=== PATIENT | female | born 1955 ===

== ENCOUNTER 2016-11-08 06:36 | Day surgery (SDC) | payer MEDICARE, OTHER ==
[2016-11-08 06:54] VITALS: BMI 28.3
[2016-11-08 08:24] VITALS: TEMP 97.1
[2016-11-08 08:38] VITALS: O2SAT 100
[2016-11-08 09:30] VITALS: BP 115/71; PULSE 56; RESP 18
== END 2016-11-08 09:25 | disposition home or self-care (01) ==
LOC: C.ENDO 06:36
PROVIDERS: ATTEND Specialist
DX: K29.70 Gastritis, unspecified, without bleeding (principal); K30 Functional dyspepsia
CPT/HCPCS: 43239; 82948; 88305; 88342; J2704; J7120

== ENCOUNTER 2016-11-15 05:59 | Day surgery (SDC) | payer MEDICARE, OTHER ==
[2016-11-15 06:32] VITALS: BMI 27.6
[2016-11-15] MEDS ORDERED: Propofol 10 mg/ml Inj (20 ML) ONE ×2 (07:51→08:06)
[2016-11-15] MEDS ORDERED: Lidocaine Hydrochloride 5 ML INJ ONE (07:51)
--- NOTE | 2016-11-15 07:55 | CP.SDSHP ---
Same Day Surgery H & P - History Proposed Procedure: COLONSCOPY Pre-Op Diagnosis: SEE NOTES - Previous Medical/Surgical History Cardiac: Hypertension, ASHD/CAD Endocrine/Metabolic: Thyroid Disease, Diabetes, Other Neuro: Other Misc: Other - Allergies Allergies: Allergies No Known Allergies Allergy (Verified 04/19/15 20:25) - Physical Exam General Appearance: N Vital Signs: Vital Signs 11/15/16 06:40 Temperature 97.5 F L Pulse Rate 61 Respiratory 19 Rate Blood Pressure 116/76 O2 Sat by Pulse 98 Oximetry Mental Status: Alert & Oriented x3 Neuro: Other Heart: Other Lungs: WNL GI: WNL - {Optional Preform as Required} Breast: WNL Abdomen: Other Rectal: Other Integument: WNL : WNL Ortho: Other ENT: WNL - Impression Pt. Evaluated Today:Candidate for Anesthesia & Procedure: Yes - Date & Time Time: 07:55 Short Stay Discharge - Short Stay Discharge Admitting Diagnosis/Reason for Visit: RECTAL BLEEDING Disposition: HOME/ ROUTINE
[2016-11-15 08:38] VITALS: TEMP 97.6
[2016-11-15] MEDS ORDERED: Belladonna-Phenobarbital PO ONE (08:50)
[2016-11-15 09:05] VITALS: O2SAT 100
[2016-11-15 11:39] VITALS: BP 112/62; PULSE 66; RESP 12
== END 2016-11-15 09:55 | disposition home or self-care (01) ==
LOC: C.ENDO 05:59
PROVIDERS: ATTEND Specialist
DX: K58.9 Irritable bowel syndrome, unspecified (principal); K64.8 Other hemorrhoids
CPT/HCPCS: 45378; 82948; 88305; J2704

== ENCOUNTER 2017-02-21 06:09 | Day surgery (SDC) | payer MEDICARE, OTHER ==
[2017-02-21 06:40] VITALS: BMI 28.3
[2017-02-21] MEDS ORDERED: Propofol 10 mg/ml Inj (20 ML) ONE (07:51)
--- NOTE | 2017-02-21 08:10 | CP.SDSHP ---
Same Day Surgery H & P - History Proposed Procedure: EGD Pre-Op Diagnosis: SEE NOTES - Previous Medical/Surgical History Cardiac: Hypertension Pulmonary: Asthma Endocrine/Metabolic: Thyroid Disease, Diabetes, Other Neuro: Backaches, Other Pain: 4.Moderate Pain - Allergies Allergies: Allergies No Known Allergies Allergy (Verified 04/19/15 20:25) - Physical Exam General Appearance: N Vital Signs: Vital Signs 02/21/17 06:40 Temperature 97.7 F Pulse Rate 72 Respiratory 19 Rate Blood Pressure 122/80 O2 Sat by Pulse 99 Oximetry Mental Status: Alert & Oriented x3 Neuro: Other Heart: Other Lungs: Other GI: WNL - {Optional Preform as Required} Breast: WNL Abdomen: Other Rectal: Other Integument: WNL : WNL Ortho: Other ENT: WNL - Impression Pt. Evaluated Today:Candidate for Anesthesia & Procedure: Yes - Date & Time Time: 08:10 Short Stay Discharge - Short Stay Discharge Admitting Diagnosis/Reason for Visit: DYSPEPSIA Disposition: HOME/ ROUTINE
[2017-02-21] MEDS ORDERED: Belladonna-Phenobarbital PO ONE (08:30)
[2017-02-21 08:31] VITALS: TEMP 97.5
[2017-02-21 08:43] VITALS: O2SAT 100
[2017-02-21 09:08] VITALS: RESP 18
[2017-02-21 09:09] VITALS: BP 121/63; PULSE 62
== END 2017-02-21 09:30 | disposition home or self-care (01) ==
LOC: C.ENDO 06:09
PROVIDERS: ATTEND Specialist
DX: K30 Functional dyspepsia (principal); K44.9 Diaphragmatic hernia without obstruction or gangrene
CPT/HCPCS: 43239; 82948; 88305; J2704

== ENCOUNTER 2017-07-18 06:59 | Inpatient (IN) | payer MEDICARE, OTHER ==
[2017-07-18 07:11] VITALS: BMI 27.8
[2017-07-18] MEDS ORDERED: DiphenhydrAMINE 50 mg/ml Inj IVP STA (07:49)
--- NOTE | 2017-07-18 07:51 | C.PDOC ---
History Of Present Illness 62 y/o female with dm, htn and thyroid problems c/o intermittent sharp chest pain that woke her this morning, radiates to back, feels sob when pain present, lasts a few seconds a t a time. pt reports neg treadmill stress test last year. pt also c/o diffuse itchy urticarial rash since Sun, taking benadryl po without improvement. Time Seen by Provider: 07/18/17 07:26 Chief Complaint (Nursing): Chest Pain History Per: Patient History/Exam Limitations: no limitations Onset/Duration Of Symptoms: Hrs Current Symptoms Are (Timing): Still Present Quality: "Pain" Past Medical History Reviewed: Historical Data, Nursing Documentation, Vital Signs Vital Signs: Last Vital Signs Temp 98.2 F 07/18/17 07:06 Pulse 70 07/18/17 10:34 Resp 14 07/18/17 10:34 BP 125/80 07/18/17 10:34 Pulse Ox 100 07/18/17 11:19 - Medical History PMH: Arthritis, Asthma, Bronchitis, CVA (Stroke), HTN, Hypercholesterolemia, Hypothyroidism, Osteoporosis, TIA (2012 NO RESIDUAL WEAKNESS) Surgical History: Endoscopy - [facility] Procedures CLOSED ENDOSCOPIC BIOPSY OF LARGE INTESTINE (01/24/13) ESOPHAGOGASTRODUODENOSCOPY [EGD] W/CLOSED BIOPSY (06/13/13) NAIL REMOVAL (09/27/12) Family History: States: No Known Family Hx - Social History Hx Tobacco Use: No Hx Alcohol Use: No Hx Substance Use: No - Immunization History Hx Tetanus Toxoid Vaccination: No Hx Influenza Vaccination: Yes Hx Pneumococcal Vaccination: No Review Of Systems Constitutional: Negative for: Fever, Chills Cardiovascular: Positive for: Chest Pain Respiratory: Positive for: Shortness of Breath Gastrointestinal: Negative for: Nausea, Vomiting Skin: Positive for: Rash Physical Exam - Physical Exam Appears: Non-toxic, No Acute Distress Skin: Warm, Dry, Rash (Scattered urticaria to abdomen and b/l legs) Head: Atraumatic, Normacephalic Eye(s): bilateral: Normal Inspection Oral Mucosa: Moist Throat: Normal, No Erythema, No Exudate Neck: Normal ROM, Supple Cardiovascular: Rhythm Regular Respiratory: Normal Breath Sounds, No Rales, No Rhonchi, No Wheezing Gastrointestinal/Abdominal: Soft, No Tenderness, No Guarding, No Rebound Extremity: No Pedal Edema, Capillary Refill (<2 seconds) Neurological/Psych: Oriented x3, Normal Speech, Normal Cognition ED Course And Treatment - Laboratory Results Result Diagrams: 07/18/17 08:14 07/18/17 08:14 ECG: Viewed By Me Interpretation Of ECG: nsr lbbb rate 75 O2 Sat by Pulse Oximetry: 100 (RA) Pulse Ox Interpretation: Normal Medical Decision Making Medical Decision Making: pt with one episode of cp while in ed, not at the moment. pt reports dec itching and less erythema to hives after benadryl. Disposition Discussed With Dr.: Aron Scott Doctor Will See Patient In The: Hospital - Disposition Disposition: HOSPITALIZED Disposition Time: 11:40 Condition: GOOD Forms: [facility] (Micronesian) - Clinical Impression Clinical Impression: Chest pain - PA / HOME APPLIANCES MECH[employer]IC / Resident Statement MD/DO has reviewed & agrees with the documentation as recorded. - Scribe Statement The provider has reviewed the documentation as recorded by the Adrianeibhannah Lopez All medical record entries made by the Scribe were at my direction and personally dictated by me. I have reviewed the chart and agree that the record accurately reflects my personal performance of the history, physical exam, medical decision making, and the department course for this patient. I have also personally directed, reviewed, and agree with the discharge instructions and disposition.
[2017-07-18 08:17] LABS: BASO % 0.2 % (0.0-2.0); EOS # 0.1 K/uL (0.0-0.7); EOS % 1.2 % (0.0-4.0); HEMOGLOBIN 13.3 g/dL (11.0-16.0); LYMPH # 1.2 K/uL (1.0-4.3); LYMPH % 17.7 % (20.0-40.0); MEAN CORPUSCULAR HEMOGLOBIN 30.4 pg (27.0-31.0); MEAN CORPUSCULAR HGB CONC 34.5 g/dL (33.0-37.0); MEAN PLATELET VOLUME 8.4 fL (7.2-11.7); MONO # 0.5 K/uL (0.0-0.8); NEUT # 5.2 K/uL (1.8-7.0); NEUT % 73.9 % (50.0-75.0); RBC 4.39 Mil/uL (3.80-5.20); RED CELL DISTRIBUTION WIDTH 12.8 % (11.5-14.5); WHITE BLOOD COUNT 7.1 K/uL (4.8-10.8)
[2017-07-18] MEDS ORDERED: DiphenhydrAMINE 50 mg/ml Inj ONE (08:31)
[2017-07-18 08:49] LABS: ALB/GLOB RATIO 1.2 (1.0-2.1); ALBUMIN 3.7 g/dL (3.5-5.0); ALT/SGPT 27 U/L (9-52); AST/SGOT 45 U/L (14-36); BLOOD UREA NITROGEN 12 mg/dL (7-17); CALCIUM 8.5 mg/dl (8.6-10.4); GFR AFRICAN-AMERICAN > 60; GFR NON-AFRICAN AMERICAN > 60
--- NOTE | 2017-07-18 10:15 | RAD ---
Chest x-ray single frontal view History: Chest pain. Comparison: 04/19/2015 Findings: Mild venous congestion. Right hilar prominence. Patchy increased markings at the left lung base. Heart size within normal limits. Calcific tendinopathy of the left proximal humerus. Impression: Mild venous congestion. Right hilar prominence. Patchy increased markings at the left lung base.
[2017-07-18 11:04] LABS: B-TYPE NATRIURETIC PEPTIDE 149 pg/mL (0-900)
[2017-07-18] MEDS ORDERED: Morphine 4 MG/ML VIAL IV PRN (13:37)
[2017-07-18] MEDS: MethylPREDNISolone 40 mg Vial IV SCH (17:03)
--- NOTE | 2017-07-18 17:06 | CP.PCM.HP ---
<Jenni Diamond - Last Filed: 07/18/17 17:02> History of Present Illness - History of Present Illness History of Present Illness: CC: chest pain and rash HPI: 62 year old female with past medical history of DM, HTN, Hyperthyroidism, and stroke presents to the hospital with chest pain and a rash. Patient states last night she was awoken at 4am by sharp mid-sternal chest pain. She states the pain lasted only a few moments and then dissipated. She stated the pain was a 6/10, radiated directly through her chest to her back and that it has never happened before. However, a few hours later the pain came back with same presentation but with lesser intensity than it was originally. This instance the pain also left swiftly. She denies any palliation or provocation to the pain. The patient also presents with a rash. Patient states the rash first appeared on her lips and right arm on 07/15/17. Her lips were swollen and the arm rash was red, dime to nickel sized, raised molina. The patient took Benadryl and the rash went away. However, on 07/17/17 the rash reappeared. It did not effect her lips this time but the rash now presented on her chest, abdomen, right arm, bilateral back, and upper thighs. She states the rash is extremely itchy and looks similar to how it appeared originally. She states this is the first time this has ever happened to her as well. Patient states she ate shrimp on Monday, but that is not new for her. She could not think of or name the introduction of anything new that could have caused the rash including no new creams, soaps, or laundry detergent. PMD: Dr. Nicole PMHx: DM, HTN, Hypothyroid, Stroke- 5 years ago requiring 1 week hospital stay with no lasting residual effects Allergies: denies Surgical History: endoscopy mar 2017, ankle surgery 15 years ago Hospitalizations: stress test a few years ago recommended by her new automobile detailer establishing care Family History: Mother of [place] at 79, Father of Prostate Cancer at unknown age, 4 siblings all alive and well, 4 children (3 boys, 1 girl) alive and well Social History: Patient denies tobacco, alcohol, recreational drug use past or present. She lives with her son in a house in [place]. Present on Admission - Present on Admission Any Indicators Present on Admission: No History of DVT/PE: No History of Uncontrolled Diabetes: No Urinary Catheter: No Decubitus Ulcer Present: No Review of Systems - Constitutional Constitutional: absent: Chills, Fever - EENT Eyes: absent: Blurred Vision, Diplopia, Pain - Cardiovascular Cardiovascular: Chest Pain. absent: Dyspnea, Edema, Leg Edema - Respiratory Respiratory: absent: Cough, Chest Congestion, Pain with Coughing - Gastrointestinal Gastrointestinal: absent: Abdominal Pain, Constipation, Diarrhea, Nausea, Vomiting - Genitourinary Genitourinary: absent: Change in Urinary Stream, Difficulty Urinating, Dysuria - Musculoskeletal Musculoskeletal: absent: Muscle Weakness, Myalgias, Numbness, Stiffness, Tingling - Integumentary Integumentary: Pruritus, Rash Additional comments: rash on chest, abdomen, b/l upper extremities, b/l upper thighs - Neurological Neurological: absent: Dizziness, Headaches, Tingling Past Patient History - Past Medical History & Family History Past Medical History?: Yes - Past Social History Smoking Status: Never Smoked - CARDIAC Hx Hypercholesterolemia: Yes Hx Hypertension: Yes - PULMONARY Hx Asthma: Yes Hx Bronchitis: Yes - NEUROLOGICAL Hx Transient Ischemic Attacks (TIA): Yes (2011 NO RESIDUAL WEAKNESS) - HEENT Hx HEENT Problems: No - RENAL Hx Chronic Kidney Disease: No - ENDOCRINE/METABOLIC Hx Hypothyroidism: Yes - HEMATOLOGICAL/ONCOLOGICAL Hx Blood Disorders: No - INTEGUMENTARY Hx Dermatological Problems: No - MUSCULOSKELETAL/RHEUMATOLOGICAL Hx Arthritis: Yes Hx Osteoporosis: Yes - GASTROINTESTINAL Hx Gastrointestinal Disorders: Yes Hx Gastroesophageal Reflux: Yes - GENITOURINARY/GYNECOLOGICAL Hx Genitourinary Disorders: No - PSYCHIATRIC Hx Substance Use: No - SURGICAL HISTORY Hx Surgeries: Yes Other/Comment: 1 OVARY REMOVED,. HX OF LEFT ANKLE TENDON SURGERY - ANESTHESIA Hx Anesthesia: Yes Hx Anesthesia Reactions: No Hx Malignant Hyperthermia: No Meds Allergies/Adverse Reactions: Allergies Allergy/AdvReac Type Severity Reaction Status Date / Time shrimp Allergy RASH Uncoded 07/19/17 07:37 Physical Exam - Constitutional Appears: Non-toxic, No Acute Distress - Head Exam Head Exam: ATRAUMATIC, NORMAL INSPECTION, NORMOCEPHALIC - Eye Exam Eye Exam: EOMI, Normal appearance Pupil Exam: NORMAL ACCOMODATION, PERRL - ENT Exam ENT Exam: Mucous Membranes Moist - Neck Exam Neck exam: Positive for: Normal Inspection. Negative for: Lymphadenopathy, Tenderness, Thyromegaly - Respiratory Exam Respiratory Exam: Clear to Auscultation Bilateral, NORMAL BREATHING PATTERN. absent: Rales, Rhonchi, Wheezes, Respiratory Distress, Stridor - Cardiovascular Exam Cardiovascular Exam: REGULAR RHYTHM, RRR, +S1, +S2 - GI/Abdominal Exam GI & Abdominal Exam: Normal Bowel Sounds, Soft. absent: Distended, Tenderness - Extremities Exam Extremities exam: Positive for: normal inspection. Negative for: pedal edema, tenderness - Back Exam Back exam: NORMAL INSPECTION - Neurological Exam Neurological exam: Alert, Oriented x3 - Psychiatric Exam Psychiatric exam: Normal Affect, Normal Mood - Skin Skin Exam: Rash, Urticaria, Warm Additional comments: erythematous urticaria on abdomen, chest, b/l arms, and b/l upper thighs Results - Vital Signs Recent Vital Signs: Last Vital Signs Temp 98.2 F 07/18/17 16:16 Pulse 69 07/18/17 16:37 Resp 18 07/18/17 16:16 BP 154/91 H 07/18/17 16:16 Pulse Ox 96 07/18/17 16:16 - Labs Result Diagrams: 07/18/17 08:14 07/18/17 08:14 Labs: Laboratory Results - last 24 hr 07/18/17 07/18/17 07/18/17 08:14 08:14 16:04 WBC 7.1 RBC 4.39 Hgb 13.3 Hct 38.6 MCV 88.0 MCH 30.4 MCHC 34.5 RDW 12.8 Plt Count 189 MPV 8.4 Neut % (Auto) 73.9 Lymph % (Auto) 17.7 L [place] % (Auto) 7.0 Eos % (Auto) 1.2 Baso % (Auto) 0.2 Neut # (Auto) 5.2 Lymph # (Auto) 1.2 [place] # (Auto) 0.5 Eos # (Auto) 0.1 Baso # (Auto) 0.0 D-Dimer, Quantitative 844 H Sodium 142 Potassium 3.6 Chloride 105 Carbon Dioxide 27 Anion Gap 14 BUN 12 Creatinine 0.8 Est GFR ( Amer) > 60 Est GFR (Non-Af Amer) > 60 POC Glucose (mg/dL) Random Glucose 81 Calcium 8.5 L Total Bilirubin 0.5 AST 45 H ALT 27 Alkaline Phosphatase 81 Troponin I < 0.0120 NT-Pro-B Natriuret Pep 149 Total Protein 6.8 Albumin 3.7 Globulin 3.1 Albumin/Globulin Ratio 1.2 07/18/17 16:29 WBC RBC Hgb Hct MCV MCH MCHC RDW Plt Count MPV Neut % (Auto) Lymph % (Auto) [place] % (Auto) Eos % (Auto) Baso % (Auto) Neut # (Auto) Lymph # (Auto) [place] # (Auto) Eos # (Auto) Baso # (Auto) D-Dimer, Quantitative Sodium Potassium Chloride Carbon Dioxide Anion Gap BUN Creatinine Est GFR ( Amer) Est GFR (Non-Af Amer) POC Glucose (mg/dL) 131 H Random Glucose Calcium Total Bilirubin AST ALT Alkaline Phosphatase Troponin I NT-Pro-B Natriuret Pep Total Protein Albumin Globulin Albumin/Globulin Ratio Assessment & Plan - Assessment and Plan (Free Text) Assessment: Chest Pain admit to telemetry first troponin (-) follow up MAXWELL x2 ASA 81mg po daily EKG: NSR at 75bpm with LBBB (seen on previous EKGs) f/u Echo Cardiology consulted, Dr. Vines, help appreciated Rash f/u IgE Benadryl 50mg po q8 prn Solumedrol 125mg iv given in ED Solumedrol 40mg iv q12h Elevated D Dimer D dimer: 844 f/u CTA Hx Stroke continue home medications: Plavix 75mg po daily Crestor 20mg po HS HTN f/u lipid panel continue home medications: Lopressor 12.5mg po BID Losartan 25mg po daily DMII f/u HgA1C accuchecks achs hypoglycemia protocol Neurontin 600mg po BID hold metformin insulin sliding scale -low Hypothyroidism f/u free T4, T3, TSH continue home med: Synthroid 50mcg po Prophylaxis GI: Protonix 40mg po daily Plavix, scds Discussed with Dr. Scott <Aron Scott - Last Filed: 07/19/17 09:18> Results - Vital Signs Recent Vital Signs: Last Vital Signs Temp 97.7 F 07/19/17 07:25 Pulse 67 07/19/17 07:25 Resp 18 07/19/17 07:25 BP 155/92 H 07/19/17 07:25 Pulse Ox 96 07/19/17 07:25 - Labs Result Diagrams: 07/19/17 07:25 07/19/17 07:25 Labs: Laboratory Results - last 24 hr 07/18/17 07/18/17 07/18/17 08:14 16:04 16:29 WBC RBC Hgb Hct MCV MCH MCHC RDW Plt Count MPV Neut % (Auto) Lymph % (Auto) [place] % (Auto) Eos % (Auto) Baso % (Auto) Neut # (Auto) Lymph # (Auto) [place] # (Auto) Eos # (Auto) Baso # (Auto) Neutrophils % (Manual) Lymphocytes % (Manual) Monocytes % (Manual) Platelet Estimate D-Dimer, Quantitative 844 H Sodium 142 Potassium 3.6 Chloride 105 Carbon Dioxide 27 Anion Gap 14 BUN 12 Creatinine 0.8 Est GFR ( Amer) > 60 Est GFR (Non-Af Amer) > 60 POC Glucose (mg/dL) 131 H Random Glucose 81 Hemoglobin A1c Calcium 8.5 L Phosphorus Magnesium Total Bilirubin 0.5 AST 45 H ALT 27 Alkaline Phosphatase 81 Total Creatine Kinase CK-MB (Mass) Troponin I < 0.0120 NT-Pro-B Natriuret Pep 149 Total Protein 6.8 Albumin 3.7 Globulin 3.1 Albumin/Globulin Ratio 1.2 Triglycerides Cholesterol LDL Cholesterol Direct HDL Cholesterol Free T4 Free T3 pg/mL TSH 3rd Generation 07/18/17 07/18/17 07/18/17 18:11 18:11 20:57 WBC RBC Hgb Hct MCV MCH MCHC RDW Plt Count MPV Neut % (Auto) Lymph % (Auto) [place] % (Auto) Eos % (Auto) Baso % (Auto) Neut # (Auto) Lymph # (Auto) [place] # (Auto) Eos # (Auto) Baso # (Auto) Neutrophils % (Manual) Lymphocytes % (Manual) Monocytes % (Manual) Platelet Estimate D-Dimer, Quantitative Sodium Potassium Chloride Carbon Dioxide Anion Gap BUN Creatinine Est GFR ( Amer) Est GFR (Non-Af Amer) POC Glucose (mg/dL) 157 H Random Glucose Hemoglobin A1c Calcium Phosphorus Magnesium Total Bilirubin AST ALT Alkaline Phosphatase Total Creatine Kinase 80 CK-MB (Mass) 0.47 Troponin I < 0.0120 NT-Pro-B Natriuret Pep Total Protein Albumin Globulin Albumin/Globulin Ratio Triglycerides Cholesterol LDL Cholesterol Direct HDL Cholesterol Free T4 1.19 Free T3 pg/mL TSH 3rd Generation 07/19/17 07/19/1718 00:35 06:23 07:25 WBC RBC Hgb Hct MCV MCH MCHC RDW Plt Count MPV Neut % (Auto) Lymph % (Auto) [place] % (Auto) Eos % (Auto) Baso % (Auto) Neut # (Auto) Lymph # (Auto) [place] # (Auto) Eos # (Auto) Baso # (Auto) Neutrophils % (Manual) Lymphocytes % (Manual) Monocytes % (Manual) Platelet Estimate D-Dimer, Quantitative Sodium 141 Potassium 3.9 Chloride 107 Carbon Dioxide 21 L Anion Gap 16 BUN 16 Creatinine 0.7 Est GFR ( Amer) > 60 Est GFR (Non-Af Amer) > 60 POC Glucose (mg/dL) 116 H Random Glucose 138 H Hemoglobin A1c Calcium 9.2 Phosphorus 2.6 Magnesium 2.0 Total Bilirubin 0.6 AST 30 ALT 29 Alkaline Phosphatase 83 Total Creatine Kinase 64 CK-MB (Mass) 0.55 Troponin I < 0.0120 NT-Pro-B Natriuret Pep Total Protein 7.4 Albumin 4.1 Globulin 3.3 Albumin/Globulin Ratio 1.2 Triglycerides 88 Cholesterol 249 H LDL Cholesterol Direct 177 H HDL Cholesterol 53 Free T4 Free T3 pg/mL 2.81 TSH 3rd Generation 0.61 07/19/17 07/19/17 07:25 07:25 WBC 12.3 H D RBC 4.64 Hgb 13.8 Hct 41.0 MCV 88.4 MCH 29.8 MCHC 33.7 RDW 12.8 Plt Count 220 MPV 8.5 Neut % (Auto) 90.7 H Lymph % (Auto) 8.0 L [place] % (Auto) 1.2 Eos % (Auto) 0.0 Baso % (Auto) 0.1 Neut # (Auto) 11.1 H Lymph # (Auto) 1.0 [place] # (Auto) 0.1 Eos # (Auto) 0.0 Baso # (Auto) 0.0 Neutrophils % (Manual) 92 H Lymphocytes % (Manual) 7 L Monocytes % (Manual) 1 Platelet Estimate Normal D-Dimer, Quantitative Sodium Potassium Chloride Carbon Dioxide Anion Gap BUN Creatinine Est GFR ( Amer) Est GFR (Non-Af Amer) POC Glucose (mg/dL) Random Glucose Hemoglobin A1c 5.6 Calcium Phosphorus Magnesium Total Bilirubin AST ALT Alkaline Phosphatase Total Creatine Kinase CK-MB (Mass) Troponin I NT-Pro-B Natriuret Pep Total Protein Albumin Globulin Albumin/Globulin Ratio Triglycerides Cholesterol LDL Cholesterol Direct HDL Cholesterol Free T4 Free T3 pg/mL TSH 3rd Generation Attending/Attestation - Attestation I have personally seen and examined this patient.: Yes I have fully participated in the care of the patient.: Yes I have reviewed all pertinent clinical information: Yes Notes (Text): 07/19/17 09:15 Medical attending: Patient was seen and examined by me. Agree with the above note by the resident in the ER The patient was seen and examined by me as well. Her family member was present in the room as well She was no longer having chest pain when I came and saw her. The patient has a LBBB on EKG and it appears she's had this before in the past There is also a hives/rash appearing on her stomach, as well as chest and back. She reports this occured over the weekend, went away and then returned along with the chest pain that she had - which then prompted her to go to ER We will check additional cardiac markers. After review of her medication list as well as LBBB on EKG we will also get a cardiology evaluation as well. thank you Aron Scott
[2017-07-18] MEDS ORDERED: Dextrose 50% SYRINGE Inj (50 ml) IV PRN (17:25)
[2017-07-18] MEDS ORDERED: Glucagon Recombinant 1 mg Inj IM PRN (17:25)
[2017-07-18] MEDS ORDERED: Iodixanol 320 MG/ML 100 ML BOTTLE IV ONE (18:11)
[2017-07-18 18:51] LABS: CK-MB 0.47 ng/mL (0.0-3.38)
[2017-07-18] MEDS: (Novolin R) Insulin Human Regular 100 units/ml vial SC SCH (21:06)
--- NOTE | 2017-07-18 23:26 | CP.PCM.CON ---
History of Present Illness - History of Present Illness History of Present Illness: Patient seen and evaluated Multiple risk factors and exertional chest pain Stress test in am Past Patient History - Past Medical History & Family History Past Medical History?: Yes - Past Social History Smoking Status: Never Smoked - CARDIAC Hx Hypercholesterolemia: Yes Hx Hypertension: Yes - PULMONARY Hx Asthma: Yes Hx Bronchitis: Yes - NEUROLOGICAL Hx Transient Ischemic Attacks (TIA): Yes (2011 NO RESIDUAL WEAKNESS) - HEENT Hx HEENT Problems: No - RENAL Hx Chronic Kidney Disease: No - ENDOCRINE/METABOLIC Hx Hypothyroidism: Yes - HEMATOLOGICAL/ONCOLOGICAL Hx Blood Disorders: No - INTEGUMENTARY Hx Dermatological Problems: No - MUSCULOSKELETAL/RHEUMATOLOGICAL Hx Arthritis: Yes Hx Osteoporosis: Yes - GASTROINTESTINAL Hx Gastrointestinal Disorders: Yes Hx Gastroesophageal Reflux: Yes - GENITOURINARY/GYNECOLOGICAL Hx Genitourinary Disorders: No - PSYCHIATRIC Hx Substance Use: No - SURGICAL HISTORY Hx Surgeries: Yes Other/Comment: 1 OVARY REMOVED,. HX OF LEFT ANKLE TENDON SURGERY - ANESTHESIA Hx Anesthesia: Yes Hx Anesthesia Reactions: No Hx Malignant Hyperthermia: No Meds Allergies/Adverse Reactions: Allergies Allergy/AdvReac Type Severity Reaction Status Date / Time No Known Allergies Allergy Verified 07/18/17 07:06 - Medications Medications: Current Medications Aspirin (Aspirin Chewable) 81 mg PO DAILY [facility] Clopidogrel Bisulfate (Plavix) 75 mg PO DAILY [facility] Dextrose (Dextrose 50% Inj) 0 ml IV STAT PRN; Protocol PRN Reason: Hypoglycemia Protocol Dextrose (Glutose 15) 0 gm PO ONCE PRN; Protocol PRN Reason: Hypoglycemia Protocol Diphenhydramine HCl (Benadryl) 50 mg PO Q8 PRN PRN Reason: Itching / Pruritus Gabapentin (Neurontin) 600 mg PO BID [facility] Last Admin: 07/18/17 17:03 Dose: 600 mg Glucagon (Glucagen Diagnostic Kit) 0 mg IM STAT PRN; Protocol PRN Reason: Hypoglycemia Protocol Dextrose (Dextrose 5% In Water 1000 Ml) 1,000 mls @ 0 mls/hr IV .Q0M PRN; Protocol; Per Protocol PRN Reason: Hypoglycemia Protocol Insulin Human Regular (Novolin R) 0 unit SC ACHS [facility] PRN Reason: Protocol Last Admin: 07/18/17 21:06 Dose: Not Given Levothyroxine Sodium (Synthroid) 50 mcg PO DAILY@0630 [facility] Losartan Potassium (Cozaar) 25 mg PO DAILY [facility] Methylprednisolone (Solu-Medrol) 40 mg IV Q12H [facility] Last Admin: 07/18/17 17:03 Dose: 40 mg Metoprolol Tartrate (Lopressor) 12.5 mg PO BID [facility] Last Admin: 07/18/17 17:03 Dose: 12.5 mg Morphine Sulfate (Morphine) 2 mg IV Q4 PRN PRN Reason: Pain, Mild (1-3) Pantoprazole Sodium (Protonix Ec Tab) 40 mg PO DAILY [facility] Rosuvastatin Calcium (Crestor) 20 mg PO HS [facility] Last Admin: 07/18/17 21:11 Dose: 20 mg Sumatriptan Succinate (Imitrex Tab) 100 mg PO DAILY PRN PRN Reason: pain Results - Vital Signs Recent Vital Signs: Last Vital Signs Temp 98.2 F 07/18/17 16:16 Pulse 69 07/18/17 20:34 Resp 18 07/18/17 16:16 BP 144/78 07/18/17 20:34 Pulse Ox 96 07/18/17 16:16 - Labs Result Diagrams: 07/18/17 08:14 07/18/17 08:14 Labs: Laboratory Results - last 24 hr 07/18/17 07/18/17 07/18/17 08:14 08:14 16:04 WBC 7.1 RBC 4.39 Hgb 13.3 Hct 38.6 MCV 88.0 MCH 30.4 MCHC 34.5 RDW 12.8 Plt Count 189 MPV 8.4 Neut % (Auto) 73.9 Lymph % (Auto) 17.7 L [place] % (Auto) 7.0 Eos % (Auto) 1.2 Baso % (Auto) 0.2 Neut # (Auto) 5.2 Lymph # (Auto) 1.2 [place] # (Auto) 0.5 Eos # (Auto) 0.1 Baso # (Auto) 0.0 D-Dimer, Quantitative 844 H Sodium 142 Potassium 3.6 Chloride 105 Carbon Dioxide 27 Anion Gap 14 BUN 12 Creatinine 0.8 Est GFR ( Amer) > 60 Est GFR (Non-Af Amer) > 60 POC Glucose (mg/dL) Random Glucose 81 Calcium 8.5 L Total Bilirubin 0.5 AST 45 H ALT 27 Alkaline Phosphatase 81 Total Creatine Kinase CK-MB (Mass) Troponin I < 0.0120 NT-Pro-B Natriuret Pep 149 Total Protein 6.8 Albumin 3.7 Globulin 3.1 Albumin/Globulin Ratio 1.2 Free T4 07/18/17 07/18/17 07/18/17 16:29 18:11 18:11 WBC RBC Hgb Hct MCV MCH MCHC RDW Plt Count MPV Neut % (Auto) Lymph % (Auto) [place] % (Auto) Eos % (Auto) Baso % (Auto) Neut # (Auto) Lymph # (Auto) [place] # (Auto) Eos # (Auto) Baso # (Auto) D-Dimer, Quantitative Sodium Potassium Chloride Carbon Dioxide Anion Gap BUN Creatinine Est GFR ( Amer) Est GFR (Non-Af Amer) POC Glucose (mg/dL) 131 H Random Glucose Calcium Total Bilirubin AST ALT Alkaline Phosphatase Total Creatine Kinase 80 CK-MB (Mass) 0.47 Troponin I < 0.0120 NT-Pro-B Natriuret Pep Total Protein Albumin Globulin Albumin/Globulin Ratio Free T4 1.19 07/18/17 20:57 WBC RBC Hgb Hct MCV MCH MCHC RDW Plt Count MPV Neut % (Auto) Lymph % (Auto) [place] % (Auto) Eos % (Auto) Baso % (Auto) Neut # (Auto) Lymph # (Auto) [place] # (Auto) Eos # (Auto) Baso # (Auto) D-Dimer, Quantitative Sodium Potassium Chloride Carbon Dioxide Anion Gap BUN Creatinine Est GFR ( Amer) Est GFR (Non-Af Amer) POC Glucose (mg/dL) 157 H Random Glucose Calcium Total Bilirubin AST ALT Alkaline Phosphatase Total Creatine Kinase CK-MB (Mass) Troponin I NT-Pro-B Natriuret Pep Total Protein Albumin Globulin Albumin/Globulin Ratio Free T4
[2017-07-19 01:42] LABS: CK-MB 0.55 ng/mL (0.0-3.38)
[2017-07-19] MEDS: MethylPREDNISolone 40 mg Vial IV SCH ×2 (04:06→16:29)
[2017-07-19] MEDS: Levothyroxine 50 MCG TAB PO SCH (06:07)
[2017-07-19 07:35] LABS: BASO % 0.1 % (0.0-2.0); HEMOGLOBIN 13.8 g/dL (11.0-16.0); MEAN CELL VOLUME 88.4 fL (81.0-99.0); MEAN CORPUSCULAR HEMOGLOBIN 29.8 pg (27.0-31.0); MEAN CORPUSCULAR HGB CONC 33.7 g/dL (33.0-37.0); MEAN PLATELET VOLUME 8.5 fL (7.2-11.7); MONO # 0.1 K/uL (0.0-0.8); MONO % 1.2 % (0.0-10.0); NEUT # 11.1 K/uL (1.8-7.0); NEUT % 90.7 % (50.0-75.0); PLATELET COUNT 220 K/uL (130-400); RBC 4.64 Mil/uL (3.80-5.20); RED CELL DISTRIBUTION WIDTH 12.8 % (11.5-14.5); WHITE BLOOD COUNT 12.3 K/uL (4.8-10.8)
[2017-07-19 07:53] LABS: ALB/GLOB RATIO 1.2 (1.0-2.1); ALBUMIN 4.1 g/dL (3.5-5.0); ALT/SGPT 29 U/L (9-52); AST/SGOT 30 U/L (14-36); BLOOD UREA NITROGEN 16 mg/dL (7-17); CALCIUM 9.2 mg/dl (8.6-10.4); GFR AFRICAN-AMERICAN > 60; GFR NON-AFRICAN AMERICAN > 60; HDL CHOLESTEROL 53 mg/dL (30-70)
[2017-07-19] MEDS ORDERED: Aminophylline 25 mg/ml Inj ONE (07:53)
[2017-07-19 08:03] LABS: LDL CHOLESTEROL 177 mg/dL (0-129)
--- NOTE | 2017-07-19 08:08 | CT ---
PROCEDURE: CT Chest with contrast (Pulmonary Angiogram) HISTORY: elevated D Dimer COMPARISON: None available. TECHNIQUE: Axial computed tomography images were obtained of the chest in the pulmonary arterial phase of enhancement. Coronal and sagittal reformatted images were created and reviewed. Intravenous contrast dose: 100 mL Visipaque 320 Radiation dose: Total exam DLP = 619.5 mGy-cm. This CT exam was performed using one or more of the following dose reduction techniques: Automated exposure control, adjustment of the mA and/or kV according to patient size, and/or use of iterative reconstruction technique. FINDINGS: PULMONARY ARTERIES: Unremarkable. No pulmonary embolism. AORTA: No acute findings. No thoracic aortic aneurysm. LUNGS: Bibasilar atelectasis/ scarring. No nodule, mass or pulmonary consolidation. PLEURAL SPACES: Unremarkable. No effusion or pneumothorax. HEART: Unremarkable. No cardiomegaly. No significant pericardial effusion. LYMPH NODES: No lymphadenopathy. BONES, CHEST WALL: Unremarkable. No fracture or destructive lesion OTHER FINDINGS: Small hiatal hernia. IMPRESSION: Unremarkable CT pulmonary angiogram. No pulmonary embolus.
[2017-07-19] MEDS: (Novolin R) Insulin Human Regular 100 units/ml vial SC SCH ×4 (08:17→21:19)
[2017-07-19 08:42] LABS: LYMPHOCYTE 7 % (20-40); MONOCYTE 1 % (0-10); NEUTROPHIL 92 % (50-75); PLATELET ESTIMATE NORMAL (NORMAL); TOTAL CELLS COUNTED 100
[2017-07-19] MEDS ORDERED: RANITIDINE HCL 300 MG PO SCH (10:00)
[2017-07-19] MEDS: Pantoprazole 40 mg EC Tab PO SCH (10:58)
--- NOTE | 2017-07-19 13:11 | CARD ---
APPROVED REPORT EXAM: Two-dimensional and M-mode echocardiogram with Doppler and color Doppler. Other Information Quality : GoodRhythm : INDICATION Chest Pain RISK FACTORS Hypertension Diabetes 2D DIMENSIONS IVSd0.8 (0.7-1.1cm)LVDd4.9 (3.9-5.9cm) PWd0.9 (0.7-1.1cm)LVDs3.1 (2.5-4.0cm) FS (%) 35.9 %LVEF (%)65.3 (>50%) M-Mode DIMENSIONS Left Atrium (MM)4.03 (2.5-4.0cm)Aortic Root2.85 (2.2-3.7cm) Aortic Cusp Exc.2.04 (1.5-2.0cm) Mitral Valve MV E Hrftswmr39.4cm/sMV A Gpwfqboe91.9cm/sE/A ratio0.7 TDI E/Lateral E'0.0E/Medial E'0.0 Tricuspid Valve TR Peak Uljybink967rx/sTR Peak Gr.22mmHg LEFT VENTRICLE The left ventricle is normal size. There is normal left ventricular wall thickness. The left ventricular function is normal. The left ventricular ejection fraction is within the normal range. There is normal LV segmental wall motion. Tissue Doppler imaging reveals moderate left ventricular diastolic dysfunction. Transmitral Doppler flow pattern is Grade I-abnormal relaxation pattern. No left ventricle thrombus noted on this study. There is no ventricular septal defect visualized. There is no left ventricular aneurysm. There is no mass noted in the left ventricle. RIGHT VENTRICLE The right ventricle is normal size. There is normal right ventricular wall thickness. The right ventricular systolic function is normal. ATRIA The left atrium is borderline dilated. The right atrium size is normal. The interatrial septum is intact with no evidence for an atrial septal defect. AORTIC VALVE The aortic valve is normal in structure. No aortic regurgitation is present. There is no aortic valvular stenosis. There is no aortic valvular vegetation. MITRAL VALVE The mitral valve is normal in structure. There is no mitral valve stenosis. There is no mitral valve regurgitation noted. TRICUSPID VALVE The tricuspid valve is normal in structure. There is no tricuspid valve regurgitation noted. PULMONIC VALVE The pulmonary valve is normal in structure. There is no pulmonic valvular regurgitation. GREAT VESSELS The aortic root is normal in size. The ascending aorta is normal in size. The pulmonary artery is normal. The IVC is normal in size and collapses >50% with inspiration. PERICARDIAL EFFUSION There is no pericardial effusion. <Conclusion> Tissue Doppler imaging reveals moderate left ventricular diastolic dysfunction. Transmitral Doppler flow pattern is Grade I-abnormal relaxation pattern. The left atrium is borderline dilated. LVEF IS 65%.
--- NOTE | 2017-07-19 13:26 | CARD ---
APPROVED REPORT EKG Measurement Heart [id number] <Conclusion> Normal sinus rhythm Left bundle branch block Abnormal ECG
--- NOTE | 2017-07-19 16:47 | CARD ---
APPROVED REPORT Protocol: LEXISCAN Test Type: LEXISCAN STRESS Test Indications: CHEST PAIN Target HR: 156 bpm Resting ECG: NSR W/ LBBB Resting Heart Rate: 79 bpm Resting Blood Pressure: 132/80mmHg submaximum (85%): 133 bpm TEST SUMMARY [id number]:050.00.01.071/.0. PREINFSNHYPERV.03:[id number]/80.0. INFUSIONDOSE 100:300.00.01.081/.0. WHPGCMAFL72:[id number]/80.0. PROCEDURE Pharmacologic stress testing was performed using 0.4mg per 5ml of regadenoson given intravenously over 7-10 seconds. Reversal agent aminophyline 100 mg, given intravenously for Headache. POST EXERCISE Reason for Termination: Protocol Completed Target HR: No Max HR: 81 bpm 67% of Maximum Predicted HR: 156 bpm Exercise duration: 00:30 min:sec, 0 Stage Exercise capacity: 1.0METs Max Blood Pressure: 132/80mmHg Blood Pressure response to exercise: normal resting BP - appropriate response Heart Rate response to exercise: appropriate Chest Pain: No, none Angina index: 0 Arrhythmia: No, none ST Change: No, none Deviation: 0 mm INTERPRETATION Stress EKG Conclusion: NON-DIAGNOSTIC LEXISCAN DUE TO PRE-EXISTING LBBB NORMAL BP RESPONSE TO LEXISCAN NUCLEAR STUDIES TO BE READ SEPARATELY EXAM: Myocardial Perfusion STRESS/REST Imaging Protocol The imaging protocol used to acquire images was Stress Tc-99m/rest Tc-99m 1 day Stress Spect myocardial perfusion imaging was performed in supine position 45 minutes following the injection of 13.1 mCi of Tc-99 Myoview. Gated Rest Spect was performed 55 minutes after intravenous 32.4 mci Tc-99 Myoview injection. The images were gated to evaluate regional wall motion and calculate ventricular ejection fraction.Images were reconstructed using backfilter projection method in short horizontal and verticle long axis. Spect slices were generated. RESTING DATA EDV85.96flCX7.10L/min ESV26.00mlMyocardial Llhl776.00g Av. Heart Rate70.00bpm EF69.00% STRESS DATA EDV88.80ttZL7.80L/min ESV22.00mlMyocardial Ehmy323.00g EF75.00% Regional WT score at stress:0.00 Regional WM score at stress:0.00 Summed WT score at stress:3.00 Av. Heart Rate72.00bpmSummed WM score at stress:0.00 LV Perf. Quant 17 Seg. SSS7.00 17 Seg. SRS5.00 17 Seg. SDS2.00 Stress Defect Extent (% LAD)13.10Rest Defect Extent (% LAD)5.00Rev. Defect Extent (% LAD)1.30 Stress Defect Extent (% LCX)37.50Rest Defect Extent (% LCX)30.00Rev. Defect Extent (% LCX)1.30 Stress Defect Extent (% RCA)0.00Rest Defect Extent (% RCA)0.00Rev. Defect Extent (% RCA)0.00 Stress Defect Extent (% SANTHOSH)11.30Rest Defect Extent (% SANTHOSH)7.60Rev. Defect Extent (% SANTHOSH)0.70 Other Information Quality:Good IMPRESSION Abnormal Myocardial Perfusion exercise stress study Left Ventricle LV Function:Left ventricle systolic function is normal. The Ejection Fraction is >55%. Conclusion 1. There is small area of apical reversible defect suggestive of stress unduced ischemia. 2. Abnormal stress test. Normal EF
--- NOTE | 2017-07-19 17:24 | CP.PCM.PN ---
Subjective - Date & Time of Evaluation Date of Evaluation: 07/19/17 Time of Evaluation: 07:00 - Subjective Subjective: PGY1- Medicine Note for Dr. Scott Patient seen and examined at bedside and in no acute distress. Patient denies any events overnight. Patient is feeling less itchy and says the rash is going away. Patient denies any chest pain or shortness of breath. Patient admits to a migraine headache which she usually gets a few times per month. Patient denies any vomiting, but does admit to some nausea. Patient also has some dizziness upon standing. Patient denies any abdominal pain, constipation, or diarrhea. Objective - Vital Signs/Intake and Output Vital Signs (last 24 hours): Temp Pulse Resp BP Pulse Ox 98.1 F 63 20 129/84 97 07/19/17 15:31 07/19/17 16:49 07/19/17 15:31 07/19/17 15:31 07/19/17 15:31 Intake and Output: 07/19/17 07/19/17 06:59 18:59 Intake Total 500 410 Balance 500 410 - Medications Medications: Current Medications Aspirin (Aspirin Chewable) 81 mg PO DAILY [facility] Last Admin: 07/19/17 10:57 Dose: 81 mg Clopidogrel Bisulfate (Plavix) 75 mg PO DAILY [facility] Last Admin: 07/19/17 10:58 Dose: 75 mg Dextrose (Dextrose 50% Inj) 0 ml IV STAT PRN; Protocol PRN Reason: Hypoglycemia Protocol Dextrose (Glutose 15) 0 gm PO ONCE PRN; Protocol PRN Reason: Hypoglycemia Protocol Diphenhydramine HCl (Benadryl) 50 mg PO Q8 PRN PRN Reason: Itching / Pruritus Gabapentin (Neurontin) 600 mg PO BID [facility] Last Admin: 07/19/17 10:58 Dose: 600 mg Glucagon (Glucagen Diagnostic Kit) 0 mg IM STAT PRN; Protocol PRN Reason: Hypoglycemia Protocol Heparin Sodium (Porcine) (Heparin) 5,000 units SC Q12 [facility] Last Admin: 07/19/17 10:58 Dose: 5,000 units Dextrose (Dextrose 5% In Water 1000 Ml) 1,000 mls @ 0 mls/hr IV .Q0M PRN; Protocol; Per Protocol PRN Reason: Hypoglycemia Protocol Insulin Human Regular (Novolin R) 0 unit SC ACHS [facility] PRN Reason: Protocol Last Admin: 07/19/17 16:23 Dose: Not Given Levothyroxine Sodium (Synthroid) 50 mcg PO DAILY@0630 [facility] Last Admin: 07/19/17 06:07 Dose: 50 mcg Losartan Potassium (Cozaar) 25 mg PO DAILY [facility] Last Admin: 07/19/17 10:58 Dose: 25 mg Methylprednisolone (Solu-Medrol) 40 mg IV Q12H [facility] Last Admin: 07/19/17 16:29 Dose: 40 mg Metoprolol Tartrate (Lopressor) 12.5 mg PO BID [facility] Last Admin: 07/19/17 10:58 Dose: 12.5 mg Morphine Sulfate (Morphine) 2 mg IV Q4 PRN PRN Reason: Pain, Mild (1-3) Pantoprazole Sodium (Protonix Ec Tab) 40 mg PO DAILY [facility] Last Admin: 07/19/17 10:58 Dose: 40 mg Rosuvastatin Calcium (Crestor) 20 mg PO HS [facility] Last Admin: 07/18/17 21:11 Dose: 20 mg Sumatriptan Succinate (Imitrex Tab) 100 mg PO DAILY PRN PRN Reason: pain Last Admin: 07/19/17 11:06 Dose: 100 mg - Labs Labs: 07/19/17 07:25 07/19/17 07:25 - Additional Findings Additional findings: - Constitutional Appears: Non-toxic, No Acute Distress - Head Exam Head Exam: ATRAUMATIC, NORMAL INSPECTION, NORMOCEPHALIC - Eye Exam Eye Exam: EOMI, Normal appearance Pupil Exam: NORMAL ACCOMODATION, PERRL - ENT Exam ENT Exam: Mucous Membranes Moist - Neck Exam Neck exam: Positive for: Normal Inspection. Negative for: Lymphadenopathy, Tenderness, Thyromegaly - Respiratory Exam Respiratory Exam: Clear to Auscultation Bilateral, NORMAL BREATHING PATTERN. absent: Rales, Rhonchi, Wheezes, Respiratory Distress, Stridor - Cardiovascular Exam Cardiovascular Exam: REGULAR RHYTHM, RRR, +S1, +S2 - GI/Abdominal Exam GI & Abdominal Exam: Normal Bowel Sounds, Soft. absent: Distended, Tenderness - Extremities Exam Extremities exam: Positive for: normal inspection. Negative for: pedal edema, tenderness - Back Exam Back exam: NORMAL INSPECTION - Neurological Exam Neurological exam: Alert, Oriented x3 - Psychiatric Exam Psychiatric exam: Normal Affect, Normal Mood - Skin Skin Exam: Rash, Urticaria, Warm Additional comments: decreasing erythematous urticaria on abdomen, chest, b/l arms, and b/l upper thighs Assessment and Plan - Assessment and Plan (Free Text) Assessment: Chest Pain admit to telemetry troponin (-) x 3 ASA 81mg po daily EKG: NSR at 75bpm with LBBB (seen on previous EKGs) Cardiology consulted, Dr. Vines, help appreciated Echo: moderate left ventricular diastolic dysfunction. transmitral doppler flow pattern is grade-I abnormal relaxation pattern. Left atrium is borderline dilated. LVEF is 65% Stress test: small area of apical reversible defect suggestive of stress induced ischemia. abnormal stress test. Normal EF. Patient to go for Cardiac Cath tomorrow at 11AM with Dr. Vines NPO after midnight Rash f/u IgE Benadryl 50mg po q8 prn Solumedrol 125mg iv given in ED Solumedrol 40mg iv q12h Elevated D Dimer D dimer: 844 CTA: negative for PE Hx Stroke continue home medications: Plavix 75mg po daily Crestor 20mg po HS HTN Triglycerides: 88 Cholesterol: 249 LDL: 177 HDL: 53 continue home medications: Lopressor 12.5mg po BID Losartan 25mg po daily DMII HgA1C: 5.6 accuchecks achs hypoglycemia protocol Neurontin 600mg po BID hold metformin insulin sliding scale -low Hypothyroidism Free T4: 1.19, TSH: .61 continue home med: Synthroid 50mcg po Prophylaxis GI: Protonix 40mg po daily Plavix, scds Discussed with Dr. Scott
--- NOTE | 2017-07-19 21:52 | CP.PCM.PN ---
Subjective - Date & Time of Evaluation Date of Evaluation: 07/19/17 Time of Evaluation: 17:25 - Subjective Subjective: Patient with multiple cardiac risk factors admitted for chest pain and now abnormal stress test For cath tomorrow in am Objective - Vital Signs/Intake and Output Vital Signs (last 24 hours): Temp Pulse Resp BP Pulse Ox 98.1 F 71 20 129/84 97 07/19/17 15:31 07/19/17 20:39 07/19/17 15:31 07/19/17 15:31 07/19/17 15:31 Intake and Output: 07/19/17 07/20/17 18:59 06:59 Intake Total 410 800 Balance 410 800 - Medications Medications: Current Medications Aspirin (Aspirin Chewable) 81 mg PO DAILY [facility] Last Admin: 07/19/17 10:57 Dose: 81 mg Clopidogrel Bisulfate (Plavix) 75 mg PO DAILY [facility] Last Admin: 07/19/17 10:58 Dose: 75 mg Dextrose (Dextrose 50% Inj) 0 ml IV STAT PRN; Protocol PRN Reason: Hypoglycemia Protocol Dextrose (Glutose 15) 0 gm PO ONCE PRN; Protocol PRN Reason: Hypoglycemia Protocol Diphenhydramine HCl (Benadryl) 50 mg PO Q8 PRN PRN Reason: Itching / Pruritus Gabapentin (Neurontin) 600 mg PO BID [facility] Last Admin: 07/19/17 17:25 Dose: 600 mg Glucagon (Glucagen Diagnostic Kit) 0 mg IM STAT PRN; Protocol PRN Reason: Hypoglycemia Protocol Heparin Sodium (Porcine) (Heparin) 5,000 units SC Q12 [facility] Last Admin: 07/19/17 21:16 Dose: 5,000 units Dextrose (Dextrose 5% In Water 1000 Ml) 1,000 mls @ 0 mls/hr IV .Q0M PRN; Protocol; Per Protocol PRN Reason: Hypoglycemia Protocol Insulin Human Regular (Novolin R) 0 unit SC ACHS [facility] PRN Reason: Protocol Last Admin: 07/19/17 21:19 Dose: Not Given Levothyroxine Sodium (Synthroid) 50 mcg PO DAILY@0630 [facility] Last Admin: 07/19/17 06:07 Dose: 50 mcg Losartan Potassium (Cozaar) 25 mg PO DAILY [facility] Last Admin: 07/19/17 10:58 Dose: 25 mg Methylprednisolone (Solu-Medrol) 40 mg IV Q12H [facility] Last Admin: 07/19/17 16:29 Dose: 40 mg Metoprolol Tartrate (Lopressor) 12.5 mg PO BID [facility] Last Admin: 07/19/17 17:25 Dose: 12.5 mg Morphine Sulfate (Morphine) 2 mg IV Q4 PRN PRN Reason: Pain, Mild (1-3) Pantoprazole Sodium (Protonix Ec Tab) 40 mg PO DAILY [facility] Last Admin: 07/19/17 10:58 Dose: 40 mg Rosuvastatin Calcium (Crestor) 20 mg PO HS [facility] Last Admin: 07/19/17 21:16 Dose: 20 mg Sumatriptan Succinate (Imitrex Tab) 100 mg PO DAILY PRN PRN Reason: pain Last Admin: 07/19/17 11:06 Dose: 100 mg - Labs Labs: 07/19/17 07:25 07/19/17 07:25
[2017-07-20] MEDS: MethylPREDNISolone 40 mg Vial IV SCH (03:59)
[2017-07-20] MEDS: Levothyroxine 50 MCG TAB PO SCH (06:32)
[2017-07-20] MEDS: (Novolin R) Insulin Human Regular 100 units/ml vial SC SCH ×3 (08:13→16:36)
[2017-07-20 08:37] LABS: BASO % 0.3 % (0.0-2.0); HEMOGLOBIN 13.7 g/dL (11.0-16.0); LYMPH # 1.4 K/uL (1.0-4.3); LYMPH % 9.2 % (20.0-40.0); MEAN CELL VOLUME 89.1 fL (81.0-99.0); MEAN CORPUSCULAR HEMOGLOBIN 29.9 pg (27.0-31.0); MEAN CORPUSCULAR HGB CONC 33.6 g/dL (33.0-37.0); MEAN PLATELET VOLUME 8.5 fL (7.2-11.7); MONO # 0.3 K/uL (0.0-0.8); NEUT # 13.5 K/uL (1.8-7.0); NEUT % 88.5 % (50.0-75.0); PLATELET COUNT 209 K/uL (130-400); RBC 4.58 Mil/uL (3.80-5.20); RED CELL DISTRIBUTION WIDTH 13.1 % (11.5-14.5); WHITE BLOOD COUNT 15.3 K/uL (4.8-10.8)
[2017-07-20 08:44] LABS: PROTHROMBIN TIME 10.9 SECONDS (9.7-12.2)
[2017-07-20] MEDS ORDERED: DiphenhydrAMINE 50 mg/ml Inj ONE (08:48)
[2017-07-20] MEDS ORDERED: Midazolam 2 MG/2 ML VIAL ONE (08:50)
[2017-07-20 09:23] LABS: LYMPHOCYTE 9 % (20-40); MONOCYTE 1 % (0-10); NEUTROPHIL 90 % (50-75); PLATELET ESTIMATE NORMAL (NORMAL); TOTAL CELLS COUNTED 100
[2017-07-20] MEDS ORDERED: Verapamil 2 ML ONE (09:28)
[2017-07-20 09:51] LABS: ALB/GLOB RATIO 1.2 (1.0-2.1); ALBUMIN 4.1 g/dL (3.5-5.0); ALT/SGPT 24 U/L (9-52); AST/SGOT 45 U/L (14-36); BLOOD UREA NITROGEN 18 mg/dL (7-17); CALCIUM 9.3 mg/dl (8.6-10.4); GFR AFRICAN-AMERICAN > 60; GFR NON-AFRICAN AMERICAN > 60
--- NOTE | 2017-07-20 11:55 | CP.PCM.PN ---
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 week Objective - Vital Signs/Intake and Output Vital Signs (last 24 hours): Temp Pulse Resp BP Pulse Ox 97.7 F 60 18 142/83 95 07/20/17 07:20 07/20/17 07:20 07/20/17 07:20 07/20/17 07:20 07/20/17 07:20 Intake and Output: 07/20/17 07/20/17 06:59 18:59 Intake Total 800 Balance 800 - Medications Medications: Current Medications Aspirin (Aspirin Chewable) 81 mg PO DAILY [facility] Last Admin: 07/19/17 10:57 Dose: 81 mg Clopidogrel Bisulfate (Plavix) 75 mg PO DAILY [facility] Last Admin: 07/19/17 10:58 Dose: 75 mg Dextrose (Dextrose 50% Inj) 0 ml IV STAT PRN; Protocol PRN Reason: Hypoglycemia Protocol Dextrose (Glutose 15) 0 gm PO ONCE PRN; Protocol PRN Reason: Hypoglycemia Protocol Diphenhydramine HCl (Benadryl) 50 mg PO Q8 PRN PRN Reason: Itching / Pruritus Gabapentin (Neurontin) 600 mg PO BID [facility] Last Admin: 07/19/17 17:25 Dose: 600 mg Glucagon (Glucagen Diagnostic Kit) 0 mg IM STAT PRN; Protocol PRN Reason: Hypoglycemia Protocol Heparin Sodium (Porcine) (Heparin) 5,000 units SC Q12 [facility] Last Admin: 07/19/17 21:16 Dose: 5,000 units Dextrose (Dextrose 5% In Water 1000 Ml) 1,000 mls @ 0 mls/hr IV .Q0M PRN; Protocol; Per Protocol PRN Reason: Hypoglycemia Protocol Insulin Human Regular (Novolin R) 0 unit SC ACHS [facility] PRN Reason: Protocol Last Admin: 07/20/17 08:13 Dose: Not Given Levothyroxine Sodium (Synthroid) 50 mcg PO DAILY@0630 [facility] Last Admin: 07/20/17 06:32 Dose: 50 mcg Losartan Potassium (Cozaar) 25 mg PO DAILY [facility] Last Admin: 07/19/17 10:58 Dose: 25 mg Methylprednisolone (Solu-Medrol) 40 mg IV Q12H [facility] Last Admin: 07/20/17 03:59 Dose: 40 mg Metoprolol Tartrate (Lopressor) 12.5 mg PO BID [facility] Last Admin: 07/19/17 17:25 Dose: 12.5 mg Morphine Sulfate (Morphine) 2 mg IV Q4 PRN PRN Reason: Pain, Mild (1-3) Pantoprazole Sodium (Protonix Ec Tab) 40 mg PO DAILY [facility] Last Admin: 07/19/17 10:58 Dose: 40 mg Rosuvastatin Calcium (Crestor) 20 mg PO HS [facility] Last Admin: 07/19/17 21:16 Dose: 20 mg Sumatriptan Succinate (Imitrex Tab) 100 mg PO DAILY PRN PRN Reason: pain Last Admin: 07/19/17 11:06 Dose: 100 mg - Labs Labs: 07/20/17 08:32 07/20/17 08:32 PT 10.9 SECONDS (9.7-12.2) 07/20/17 08:32 INR 1.0 07/20/17 08:32 APTT 32 SECONDS (21-34) 07/20/17 08:32
[2017-07-20] MEDS: Pantoprazole 40 mg EC Tab PO SCH (12:20)
--- NOTE | 2017-07-20 13:50 | CP.PCM.DIS ---
Provider - Provider Date of Admission: 07/18/17 11:38 Attending physician: Aron Scott DO Primary care physician: Dr. Nicole Consults: Dr. Vines (cardio) Time Spent in preparation of Discharge (in minutes): 35 Diagnosis - Discharge Diagnosis (1) Chest pain Status: Resolved (2) Rash and nonspecific skin eruption Status: Resolved Hospital Course - Lab Results Lab Results: Most Recent Lab Values WBC 15.3 K/uL (4.8-10.8) H 07/20/17 08:32 RBC 4.58 Mil/uL (3.80-5.20) 07/20/17 08:32 Hgb 13.7 g/dL (11.0-16.0) 07/20/17 08:32 Hct 40.8 % (34.0-47.0) 07/20/17 08:32 MCV 89.1 fL (81.0-99.0) 07/20/17 08:32 MCH 29.9 pg (27.0-31.0) 07/20/17 08:32 MCHC 33.6 g/dL (33.0-37.0) 07/20/17 08:32 RDW 13.1 % (11.5-14.5) 07/20/17 08:32 Plt Count 209 K/uL (130-400) 07/20/17 08:32 MPV 8.5 fL (7.2-11.7) 07/20/17 08:32 Neut % (Auto) 88.5 % (50.0-75.0) H 07/20/17 08:32 Lymph % (Auto) 9.2 % (20.0-40.0) L 07/20/17 08:32 [place] % (Auto) 2.0 % (0.0-10.0) 07/20/17 08:32 Eos % (Auto) 0.0 % (0.0-4.0) 07/20/17 08:32 Baso % (Auto) 0.3 % (0.0-2.0) 07/20/17 08:32 Neut # (Auto) 13.5 K/uL (1.8-7.0) H 07/20/17 08:32 Lymph # (Auto) 1.4 K/uL (1.0-4.3) 07/20/17 08:32 [place] # (Auto) 0.3 K/uL (0.0-0.8) 07/20/17 08:32 Eos # (Auto) 0.0 K/uL (0.0-0.7) 07/20/17 08:32 Baso # (Auto) 0.0 K/uL (0.0-0.2) 07/20/17 08:32 Neutrophils % (Manual) 90 % (50-75) H 07/20/17 08:32 Lymphocytes % (Manual) 9 % (20-40) L 07/20/17 08:32 Monocytes % (Manual) 1 % (0-10) 07/20/17 08:32 Platelet Estimate Normal (NORMAL) 07/20/17 08:32 PT 10.9 SECONDS (9.7-12.2) 07/20/17 08:32 INR 1.0 07/20/17 08:32 APTT 32 SECONDS (21-34) 07/20/17 08:32 D-Dimer, Quantitative 844 ng/mlDDU (0-243) H 07/18/17 16:04 Sodium 143 mmol/L (132-148) 07/20/17 08:32 Potassium 4.8 mmol/L (3.6-5.2) 07/20/17 08:32 Chloride 108 mmol/L (98-107) H 07/20/17 08:32 Carbon Dioxide 22 mmol/L (22-30) 07/20/17 08:32 Anion Gap 18 (10-20) 07/20/17 08:32 BUN 18 mg/dL (7-17) H 07/20/17 08:32 Creatinine 0.8 mg/dL (0.7-1.2) 07/20/17 08:32 Est GFR ( Amer) > 60 07/20/17 08:32 Est GFR (Non-Af Amer) > 60 07/20/17 08:32 POC Glucose (mg/dL) 126 mg/dL (65-110) H 07/20/17 12:40 Random Glucose 122 mg/dL (65-105) H 07/20/17 08:32 Hemoglobin A1c 5.6 % (4.2-6.5) 07/19/17 07:25 Calcium 9.3 mg/dl (8.6-10.4) 07/20/17 08:32 Phosphorus 2.5 mg/dL (2.5-4.5) 07/20/17 08:32 Magnesium 2.4 mg/dL (1.6-2.3) H 07/20/17 08:32 Total Bilirubin 0.5 mg/dL (0.2-1.3) 07/20/17 08:32 AST 45 U/L (14-36) H D 07/20/17 08:32 ALT 24 U/L (9-52) 07/20/17 08:32 Alkaline Phosphatase 82 U/L (38-126) 07/20/17 08:32 Total Creatine Kinase 64 U/L (30-135) 07/19/17 00:35 CK-MB (Mass) 0.55 ng/mL (0.0-3.38) 07/19/17 00:35 Troponin I < 0.0120 ng/mL (0.00-0.120) 07/19/17 00:35 NT-Pro-B Natriuret Pep 149 pg/mL (0-900) 07/18/17 08:14 Total Protein 7.5 g/dL (6.3-8.3) 07/20/17 08:32 Albumin 4.1 g/dL (3.5-5.0) 07/20/17 08:32 Globulin 3.3 gm/dL (2.2-3.9) 07/20/17 08:32 Albumin/Globulin Ratio 1.2 (1.0-2.1) 07/20/17 08:32 Triglycerides 88 mg/dL (0-149) 07/19/17 07:25 Cholesterol 249 mg/dL (0-199) H 07/19/17 07:25 LDL Cholesterol Direct 177 mg/dL (0-129) H 07/19/17 07:25 HDL Cholesterol 53 mg/dL (30-70) 07/19/17 07:25 Free T4 1.19 ng/dL (0.78-2.19) 07/18/17 18:11 Free T3 pg/mL 2.81 pg/mL (2.77-5.27) 07/19/17 07:25 TSH 3rd Generation 0.61 mIU/L (0.46-4.68) 07/19/17 07:25 IgE 9 kU/L (<zu=073) 07/18/17 18:11 - Hospital Course Hospital Course: 62 year old female presented to [facility] on 07/18/17 with a brief episode of chest pain and hives over her chest, abdomen, back, upper arms, and upper legs. Patient's troponin's were negative in the ER. Her EKG showed NSR at 75 bpm and chronic LBBB. Her D dimer was elevated at 844. Chest CTA was unremarkable with no evidence of PE. She was given ASA 81mg, plavix 75mg, as well as continued on home meds of crestor 20mg, levothyroxine 50mcg lopressor 12.5mg, losartan 25mg, gabapentin 600mg. For the rash she was given benadryl 50mg, solumedrol 125mg IVP in the ER and 40mg IV q12 on the floor. She was treated with insulin sliding scale as her metformin was held. Her sumatriptan was placed on PRN. CXR showed mild venous congestion, right hilar prominence, and patchy increased markings at left lung base. An echocardiogram was ordered which showed moderate left ventricular diastolic dysfunction, borderline left atrial dilation and LVEF of 65%.Dr. Vines from cardiology was consulted who recommended nuclear stress test to be completed the following morning. Stress test showed a small area of apical reversible defect suggestive of stress induced ischemia. Normal EF. Patient was taken for cardiac cath on 07/20 which showed normal coronaries and EF 50%. Patient should follow up with Dr. Vines as an outpatient. Patient's WBC was found to be elevated on 07/19/17 at 12.3 likely due to the steroid therapy. Patient's Cholesterol and LDL were found to be elevated at 249 and 177 respectively. Patient to continue on Crestor. Patient's troponin and CK- MB were negative x3. Patient's TSH, and free T4 were within normal limits. Her A1c was found to be 5.6. Upon discharge, patient's rash had subsided. Her chest pain was no longer present. She was cleared by cardiology with recommended follow up. This is a summary of the patient's hospital course. Please see chart for details. Discharge Exam - Head Exam Head Exam: ATRAUMATIC, NORMAL INSPECTION, NORMOCEPHALIC - Eye Exam Eye Exam: EOMI, Normal appearance Pupil Exam: NORMAL ACCOMODATION, PERRL - ENT Exam ENT Exam: Mucous Membranes Moist - Respiratory Exam Respiratory Exam: Clear to PA & Lateral, NORMAL BREATHING PATTERN. absent: Rales, Rhonchi, Wheezes, Stridor - Cardiovascular Exam Cardiovascular Exam: REGULAR RHYTHM, RRR, +S1, +S2 - GI/Abdominal Exam GI & Abdominal Exam: Normal Bowel Sounds, Soft, Unremarkable. absent: Distended , Firm, Tenderness - Extremities Exam Extremities exam: full ROM, normal inspection Additional comments: right wrist cath insertion site covered in c/d/i dressing, full sensation and ROM - Back Exam Back exam: NORMAL INSPECTION - Neurological Exam Neurological exam: Alert, Oriented x3 - Psychiatric Exam Psychiatric exam: Normal Affect, Normal Mood - Skin Skin Exam: Intact, Normal Color, Warm Additional comments: rash subsided Discharge Plan - Follow Up Plan Condition: GOOD Disposition: HOME/ ROUTINE
[2017-07-20 15:44] VITALS: BP 143/88; RESP 20; TEMP 98; O2SAT 98
[2017-07-20 16:52] VITALS: PULSE 68
--- NOTE | 2017-07-20 17:33 | CARDCATH ---
PROCEDURE DATE: 07/20/2017 PROCEDURES: 1. Left heart catheterization. 2. Coronary angiogram. 3. Radiological supervision and radiological interpretation of the left heart catheterization and coronary angiogram. CLINICAL INDICATIONS: 1. Angina. 2. Abnormal stress test. 3. Hypertension. 4. Hyperlipidemia. 5. Diabetes. REFERRING PHYSICIAN: Aron Scott DO PERFORMING PHYSICIAN: Nick Vines MD PROCEDURE: After informed consent, the patient was prepped and draped in the usual sterile fashion. 2% lidocaine was given in the right wrist for local anesthesia. Using micropuncture technique, a 6-Cymro sheath was introduced into right radial artery. JR4 diagnostic catheter inserted into the left ventricle across the aortic valve. LV and diastolic pressure measured. Contrast injection and LV angiogram was done, and the catheter was pulled back across the aortic valve. Gradient across the aortic valve was measured. Then the same catheter engaged into the right coronary artery. Contrast injected and right coronary angiogram was done. Then the catheter was exchanged to a 5-Cymro [place] catheter. [place] catheter engaged into the left main coronary artery. Contrast injected and left coronary angiogram was done. The patient tolerated the procedure well. Post procedure, Terumo radial band applied to right wrist with excellent hemostasis. FINDINGS: 1. Left main coronary artery is patent. 2. LAD and diagonal branches are patent. 3. Left circumflex and obtuse marginal branches are patent. 4. Right coronary artery is dominant and patent. 5. LV ejection fraction is 50%. Mild anterolateral hypokinesis. EDP is 18. No gradient across the aortic valve. IMPRESSION: 1. Normal coronaries. 2. Mildly depressed left ventricular systolic function. PLAN: Recommend medical management. Nick Vines MD
== END 2017-07-20 17:33 | disposition home or self-care (01) | DRG 287 ==
LOC: C.ER 06:59 → C.9E 11:38 → OBSVTOIN 13:13 → C.5S 14:41
PROVIDERS: ADMIT Hospitalist; ATTEND Hospitalist
PROC: B211YZZ Fluoroscopy of Multiple Coronary Arteries using Other Contrast (ICD-10-PCS; 2017-07-20)
PROC: B215YZZ Fluoroscopy of Left Heart using Other Contrast (ICD-10-PCS; 2017-07-20)
PROC: 4A023N7 Measurement of Cardiac Sampling and Pressure, Left Heart, Percutaneous Approach (ICD-10-PCS; principal; 2017-07-20 11:00)
DX: R07.9 Chest pain, unspecified (principal); E03.9 Hypothyroidism, unspecified; E11.9 Type 2 diabetes mellitus without complications; E78.00 Pure hypercholesterolemia, unspecified; I10 Essential (primary) hypertension; I44.7 Left bundle-branch block, unspecified; J45.909 Unspecified asthma, uncomplicated; K21.9 Gastro-esophageal reflux disease without esophagitis; L50.9 Urticaria, unspecified; M81.0 Age-related osteoporosis without current pathological fracture; Z86.73 Personal history of transient ischemic attack (TIA), and cerebral infarction without residual deficits; R79.1 Abnormal coagulation profile

== ENCOUNTER 2017-07-31 06:51 | Emergency (ER) | payer MEDICARE, OTHER ==
[2017-07-31 06:51] VITALS: BMI 28.3
[2017-07-31] MEDS ORDERED: Sodium Chloride 0.9% 1,000 ML IV ONE (07:44)
[2017-07-31] MEDS ORDERED: Lidocaine 1%/Epinephrine 1:100000 30 ml vial IJ ONE (07:45)
[2017-07-31] MEDS ORDERED: Lidocaine Hydrochloride 0 ML INJ ONE (08:01)
[2017-07-31] MEDS ORDERED: Morphine 4 MG/ML VIAL ONE (08:06)
[2017-07-31] MEDS ORDERED: Sodium Chloride 0.9% 1,000 ML ONE (08:06)
[2017-07-31 08:27] LABS: BASO % 0.6 % (0.0-2.0); EOS # 0.3 K/uL (0.0-0.7); EOS % 4.2 % (0.0-4.0); HEMOGLOBIN 13.5 g/dL (11.0-16.0); LYMPH # 1.7 K/uL (1.0-4.3); LYMPH % 26.6 % (20.0-40.0); MEAN CORPUSCULAR HEMOGLOBIN 30.7 pg (27.0-31.0); MEAN CORPUSCULAR HGB CONC 35.3 g/dL (33.0-37.0); MEAN PLATELET VOLUME 9.4 fL (7.2-11.7); MONO # 0.5 K/uL (0.0-0.8); MONO % 8.7 % (0.0-10.0); NEUT # 3.8 K/uL (1.8-7.0); NEUT % 59.9 % (50.0-75.0); RBC 4.4 Mil/uL (3.80-5.20); RED CELL DISTRIBUTION WIDTH 12.9 % (11.5-14.5)
[2017-07-31 08:33] LABS: WHITE BLOOD COUNT 6.3 K/uL (4.8-10.8)
--- NOTE | 2017-07-31 08:33 | RAD ---
Chest x-ray single frontal view History: Shortness of breath. Comparison: 07/18/2017 Findings: Moderate venous congestion. Right infrahilar consolidative changes. Bibasilar airspace opacities. Small left pleural effusion. Mild cardiomegaly. Degenerative changes in the spine and shoulders. Impression: Moderate venous congestion. Right infrahilar consolidative changes. Bibasilar airspace opacities. Small left pleural effusion. Mild cardiomegaly.
[2017-07-31 08:50] LABS: ALB/GLOB RATIO 1.3 (1.0-2.1); ALBUMIN 3.9 g/dL (3.5-5.0); ALT/SGPT 27 U/L (9-52); AST/SGOT 34 U/L (14-36); BLOOD UREA NITROGEN 17 mg/dL (7-17); CALCIUM 9.3 mg/dl (8.6-10.4); GFR AFRICAN-AMERICAN > 60; GFR NON-AFRICAN AMERICAN > 60
--- NOTE | 2017-07-31 09:02 | CT ---
PROCEDURE: CT HEAD WITHOUT CONTRAST. HISTORY: dizziness COMPARISON: 03/30/2012 TECHNIQUE: Axial computed tomography images were obtained through the head/brain without intravenous contrast. Radiation dose: Total exam DLP = 843.48 mGy-cm. This CT exam was performed using one or more of the following dose reduction techniques: Automated exposure control, adjustment of the mA and/or kV according to patient size, and/or use of iterative reconstruction technique. FINDINGS: HEMORRHAGE: No intracranial hemorrhage. BRAIN: No mass effect or edema. No atrophy or chronic microvascular ischemic changes. VENTRICLES: Unremarkable. No hydrocephalus. CALVARIUM: Unremarkable. PARANASAL SINUSES: Unremarkable as visualized. No significant inflammatory changes. MASTOID AIR CELLS: Unremarkable as visualized. No inflammatory changes. OTHER FINDINGS: None. IMPRESSION: Normal CT of the Head. No acute intracranial hemorrhage.
--- NOTE | 2017-07-31 09:15 | C.PDOC ---
History Of Present Illness 62-year-old female, PMHx includes vertigo (on meclizine), presents to the emergency department with complaints of dizziness episode this morning, causing her to fall. patient landed face forward, sustaining injury to her head. Denies nausea/vomiting, diarrhea, fevers, chills, shortness of breath or any other associated symptoms. No other complaints at this time. Time Seen by Provider: 07/31/17 07:33 Chief Complaint (Nursing): Dizziness/Lightheaded History Per: Patient History/Exam Limitations: no limitations Past Medical History Reviewed: Historical Data, Nursing Documentation, Vital Signs Vital Signs: Last Vital Signs Temp 97.4 F L 07/31/17 10:15 Pulse 81 07/31/17 10:15 Resp 18 07/31/17 10:15 BP 133/74 07/31/17 10:15 Pulse Ox 99 07/31/17 10:15 - Medical History PMH: Arthritis, Asthma, Bronchitis, CVA (Stroke), HTN, Hypercholesterolemia, Hypothyroidism, Osteoporosis, TIA (2012 NO RESIDUAL WEAKNESS) Surgical History: Endoscopy - [facility] Procedures CLOSED ENDOSCOPIC BIOPSY OF LARGE INTESTINE (01/24/13) ESOPHAGOGASTRODUODENOSCOPY [EGD] W/CLOSED BIOPSY (06/13/13) FLUOROSCOPY OF LEFT HEART USING OTHER CONTRAST (07/18/17) FLUOROSCOPY OF MULTIPLE CORONARY ARTERIES USING OTH CONTRAST (07/18/17) MEASURE OF CARDIAC SAMPL & PRESSURE, L HEART, PERC APPROACH (07/18/17) NAIL REMOVAL (09/27/12) Family History: States: No Known Family Hx - Social History Hx Tobacco Use: No Hx Alcohol Use: No Hx Substance Use: No - Immunization History Hx Tetanus Toxoid Vaccination: No Hx Influenza Vaccination: Yes Hx Pneumococcal Vaccination: No Review Of Systems Constitutional: Negative for: Fever Cardiovascular: Negative for: Chest Pain Respiratory: Negative for: Shortness of Breath Gastrointestinal: Negative for: Vomiting Musculoskeletal: Negative for: Neck Pain, Back Pain Neurological: Positive for: Dizziness. Negative for: Weakness, Numbness Physical Exam - Physical Exam Appears: Non-toxic, No Acute Distress Skin: Normal Color, Warm, Dry, No Rash Head: Normacephalic, Laceration (6cm. right occipital scalp) Eye(s): bilateral: PERRL Oral Mucosa: Moist Lips: Normal Appearing Neck: Normal ROM Cardiovascular: Rhythm Regular, No Murmur Respiratory: Normal Breath Sounds, No Accessory Muscle Use Gastrointestinal/Abdominal: Soft, No Tenderness Extremity: Normal ROM, No Deformity, No Swelling Neurological/Psych: Oriented x3, Normal Speech ED Course And Treatment - Laboratory Results Result Diagrams: 07/31/17 08:20 07/31/17 08:20 ECG: Interpreted By Me, Viewed By Me ECG Rhythm: Sinus Rhythm, L BBB ECG Interpretation: Normal, No Acute Changes (07/18) Rate From EC O2 Sat by Pulse Oximetry: 100 (RA) Pulse Ox Interpretation: Normal Laceration - Laceration Repair Right occipital scalp Wound Length (In cm): 6cm Description Of Wound: Clean Wound Cleansed With: Betadine Anesthesia: Lidocaine 1%, With Epi Wound Examination: Irrigated With Saline Wound Closure: Alissa (10) Medical Decision Making Medical Decision Making: Impression: Dizziness Prior visits Notes and records from previous visits were reviewed. Patient Patient s/p cardiac cath done on 07/20, showed Normal Coronaries and EF 50% Plan: * EKG * CT Head * CBC * Chest X-Ray * Morphine, Zofran, IVFs * CXR * Reassess and Disposition * * dizziness - patient states improvement, no further dizziness, no headache now. Patient has no pulmonary complaints, no sob, no cp, no cough. Disposition Counseled Patient/Family Regarding: Studies Performed, Diagnosis, Need For Followup - Disposition Referrals: Kali Dumont [Staff Provider] - Disposition: HOME/ ROUTINE Disposition Time: 09:43 Condition: STABLE Additional Instructions: follow up with your doctor in 2 days wound check in 2 days staple removal in 10 days return to ER if symptoms worsens or progress take medications as prescribed. Instructions: Vertigo (a Type of Dizziness), Closed Head Injury (DC), Laceration Repair With [place] (DC) Forms: Gen Discharge Inst Greenlandic, Let Connect (Greenlandic), Work Excuse Print Language: QATARI - Clinical Impression Clinical Impression: Dizziness, Laceration - injury, Head injury - Scribe Statement The provider has reviewed the documentation as recorded by the Scribe (Chika Villalpando) All medical record entries made by the Scribe were at my direction and personally dictated by me. I have reviewed the chart and agree that the record accurately reflects my personal performance of the history, physical exam, medical decision making, and the department course for this patient. I have also personally directed, reviewed, and agree with the discharge instructions and disposition.
[2017-07-31] MEDS ORDERED: Potassium Chloride 20 mEq ER Tab PO SCH (10:00)
[2017-07-31] MEDS ORDERED: Potassium Chloride 20 mEq ER Tab PO ONE (10:04)
[2017-07-31 10:16] VITALS: BP 133/74; PULSE 81; RESP 18; TEMP 97.4
[2017-07-31 17:31] VITALS: O2SAT 100
--- NOTE | 2017-08-01 12:20 | CARD ---
APPROVED REPORT EKG Measurement Heart [id number] <Conclusion> Normal sinus rhythm Left bundle branch block Abnormal ECG
== END 2017-07-31 10:16 | disposition home or self-care (01) ==
LOC: C.ER 06:51
DX: S01.01XA Laceration without foreign body of scalp, initial encounter (principal); W18.30XA Fall on same level, unspecified, initial encounter; Y92.9 Unspecified place or not applicable; R42 Dizziness and giddiness; I10 Essential (primary) hypertension; E78.00 Pure hypercholesterolemia, unspecified
CPT/HCPCS: 12002; 70450; 71045; 80053; 82948; 84443; 84484; 85025; 93005; 96361; 96374; 96375; 99285; J2270; J2405; J7040